=== PATIENT | female | born 1945 | race Caucasian/White ===

== ENCOUNTER → 2017-01-31 | Outpatient (CLI) | payer MEDICARE ==
[~2017-01-31] MED LIST: ATEN1TAB3 PO; OXYC-12 PO
--- NOTE | 2017-01-31 13:32 | Diagnostic Imaging Report ---
INDICATION: Cough and shortness of breath. PA and lateral chest. FINDINGS: Heart size and pulmonary vascularity are normal. Lungs are clear. There are no effusions or pneumothoraces. IMPRESSION: Negative chest. Dictated by: Dictated on workstation # [id number]
== END ==
LOC: RAD 13:00
PROVIDERS: ATTEND Nurse Practitioner Family
DX: R06.02 Shortness of breath (principal)
CPT/HCPCS: 71020

== ENCOUNTER → 2017-02-24 | Outpatient (CLI) | payer MEDICARE ==
--- NOTE | 2017-02-24 12:11 | Diagnostic Imaging Report ---
PROCEDURE: MRI left upper extremity without contrast. TECHNIQUE: Multiplanar, multisequence non contrast-enhanced MRI of the left upper extremity was accomplished. INDICATION: Left shoulder pain. FINDINGS: There is flattening of the posterolateral aspect of the humeral head, which could be related to an old injury or anterior dislocation. This is not associated with bone marrow contusion to suggest an acute abnormality. There is no os acromiale. The bone marrow around the acromioclavicular joint demonstrates subchondral edema compatible with degenerative changes with inferior osteophyte formation that has an impression upon the myotendinous junction of the supraspinatus posterior fibers is seen. There is also subchondral cyst formation measuring 7 mm at the upper aspect of the glenoid and cystic changes in the humeral head near the footplate insertion site of the rotator cuff also noted. The glenohumeral joint demonstrates cartilage thinning and fissuring with osteophyte formation, inferiorly compatible with osteoarthritis. There is rotator cuff tendinosis with undersurface partial tear involving the anterior fibers of the supraspinatus. No full-thickness or retracted tear. The subscapular tendon also demonstrates slight increased signal suggestive of tendinosis without a tear identified. The long head of biceps tendon appears to be within its groove. There is increased signal in the superior and in the inferior segments of the labrum which could relate to degeneration or nondisplaced tears. The muscle bulk around the shoulder is normal. There is minimal amount of fluid in the subacromial subdeltoid bursa. There is a small to moderate shoulder joint effusion. IMPRESSION: 1. Glenohumeral and acromioclavicular joint osteoarthritis changes with inferior osteophytes at both joints. 2. Rotator cuff tendinosis and partial undersurface tear seen in the anterior fibers of the supraspinatus tendon. 3. Signal abnormality in the superior and inferior segments of the labrum is suggestive of degeneration or nondisplaced tears. Dictated by: Dictated on workstation # [id number]
== END ==
LOC: RAD 09:22
PROVIDERS: ATTEND Orthopaedic Surgery
DX: M19.012 Primary osteoarthritis, left shoulder (principal); M75.82 Other shoulder lesions, left shoulder
CPT/HCPCS: 73221

== ENCOUNTER 2017-03-23 05:34 | Outpatient (CLI) | payer MEDICARE ==
[~2017-03-23] VITALS: Ht 162.6 cm; Wt 78.0 kg
== END 2017-03-23 11:01 ==
LOC: PREOP 05:34
PROVIDERS: ATTEND Orthopaedic Surgery
DX: Z01.818 Encounter for other preprocedural examination (principal); M75.102 Unspecified rotator cuff tear or rupture of left shoulder, not specified as traumatic

== ENCOUNTER 2017-03-28 07:27 | Day surgery (SDC) | payer MEDICARE ==
[~2017-03-28] VITALS: Ht 162.6 cm; Wt 78.0 kg
[2017-03-28] MEDS ORDERED: ceFAZolin 2 GM/50 ML NS 50 ML ONE (07:32)
[2017-03-28] MEDS ORDERED: LIDOCAINE PF 2% 5 ML (XYLOCAINE) VIAL ONE (07:34)
[2017-03-28] MEDS ORDERED: ROCURONIUM 50 MG/5 ML (ZEMURON) VIAL IV ONE (07:34)
[2017-03-28] MEDS ORDERED: proPOfol 200 MG/20 ML (DIPRIVAN) VIAL IV ONE (07:34)
[2017-03-28] MEDS ORDERED: ONDANSETRON 4 MG/2 ML (SDV) Z0FRAN ONE ×2 (07:34→07:57)
[2017-03-28] MEDS ORDERED: fentaNYL INJECTION 100 MCG/2 ML AMP ONE (07:34)
[2017-03-28] MEDS ORDERED: LIDOCAINE 1% INJ 20 ML (XYLOCAINE) VIAL ONE (07:35)
[2017-03-28] MEDS ORDERED: EPINEPHrine INJECTION 1 MG/ML AMP ONE (07:35)
[2017-03-28] MEDS ORDERED: SEVOFLURANE (ULTANE) 15 ML INHAL SOLN ONE ×3 (07:35→09:08)
[2017-03-28] MEDS ORDERED: LACTATED RINGERS 1,000 ML IV ONE (07:35)
[2017-03-28] MEDS ORDERED: ROPIVACAINE 5MG/ML 30ML VIAL ONE (07:40)
[2017-03-28] MEDS ORDERED: MIDAZOLAM 2 MG/2 ML (VERSED) VIAL ONE (07:40)
[2017-03-28] MEDS ORDERED: FAMOTIDINE 20MG/2ML IV (PEPCID) ONE (07:57)
--- NOTE | 2017-03-28 07:57 | Discharge Inst-Simple/Standard ---
Discharge Inst-Standard Discharge Medications New, Converted or Re-Newed RX: RX on Chart Patient Instructions/Follow Up Plan of Care/Instructions/FU: f/u in [address] High arthroscopy instructions for more detail Activity as Tolerated: No Discharge Diet: No Restrictions Return to The Hospital For: call Dr. Mendez office for any questions/concerns SANDRA BECK APRN Mar 28, 2017 7:57 am
[2017-03-28] MEDS ORDERED: HYDROcodone/APAP 5 MG/325 MG (LORTAB) TAB PO PRN (08:00)
--- NOTE | 2017-03-28 08:03 | Progress Note-Pre Operative ---
Pre-Operative Progress Note H&P Reviewed The H&P was reviewed, patient examined and no changes noted. Date Seen by Provider: Mar 28, 2017 Time Seen by Provider: 08: Date H&P Reviewed: Mar 28, 2017 Time H&P Reviewed: 08:19 Pre-Operative Diagnosis: Primary Osteoarthritis AC joint Left shoulder with secondary impingement SHANIQUA VILLEDA DO Mar 28, 2017 8:03 am
[2017-03-28] MEDS ORDERED: LABETALOL HCL 20 MG/4 ML VIAL ONE (08:08)
[2017-03-28] MEDS ORDERED: ceFAZolin 2 GM/NS 50 ML IV ONE (08:15)
[2017-03-28] MEDS ORDERED: LACTATED RINGERS 1,000 ML IV PRN (08:18)
--- NOTE | 2017-03-28 08:21 | Anesthesia-Peripheral Nerve Bl ---
Procedure Start/Stop Time Date of Procedure: Mar 28, 2017 Start Time: 07:50 Stop Time: 08:00 Peripheral Nerve Block Peripheral Nerve Blockade Risk/Benefits/Alternatives discussed, including IV injection leading to complications or seizures, nerve irritation or damage, pneumothorax, total spinal anesthesia, injection, and/or bleeding. Approach: Left ISB Side Confirmed: LEFT Indication: Req Pain Mgmt by Surgeon Specifically requested for management of pain by: Dr. High Patient Condition Patient Condition: Sedate/contact maintained Procedure Prepartation: Chlorhexidine Position: Supine Fountain: Short-bevel Needle (s) Size: 22g 2" Technique: Nerve Stimulation, Ultrasound Motor response or parethesia o: bicepts twitch mA: 0.5 Sedation Given: Midazolam (2mg) Injectate: ropivacaine Concentration %: 0.5 Volume (ml): 30 Narrative Injection was made incrementally with constant monitoring. Aspiration every (mls): 5 Blood Aspirated: No Pain on injection noted: No Normal Resistance on injection: Yes Events Events: None:easy well tolerated Sucess: Full evaluation-pending Patient Conditon Post Peripheral Nerve Block Post Peripheral Nerve Block Vital Signs: Blood Pressure: Systolic Diastolic Heart Rate BLANCHE OSMAN CRNA Mar 28, 2017 08:21
[2017-03-28] MEDS ORDERED: ONDANSETRON 4 MG/2 ML (SDV) Z0FRAN IV ONE (08:30)
[2017-03-28] MEDS ORDERED: FAMOTIDINE 20MG/2ML IV (PEPCID) IV ONE (08:30)
[2017-03-28 08:50] VITALS: BP 175/90
[2017-03-28] MEDS ORDERED: HYDR-757 PO (08:56)
[2017-03-28] MEDS ORDERED: TRAM-42 PO (08:56)
[2017-03-28] MEDS ORDERED: GLYCOPYRROLATE 0.2 MG/ML (ROBINUL) 2 ML VIAL ONE (09:08)
[2017-03-28] MEDS ORDERED: NEOSTIGMINE (BLOXIVERZ ) 1 MG/1ML 10 ML VIAL ONE (09:08)
[2017-03-28] MEDS ORDERED: ONDANSETRON 4 MG/2 ML (SDV) Z0FRAN IVP PRN (09:45)
[2017-03-28] MEDS ORDERED: morphine INJ 10 MG/ML 1ML (SYR OR VIAL) IVP PRN (09:45)
--- NOTE | 2017-03-28 09:50 | Progress Note-Post Operative ---
Post-Operative Progess Note Surgeon (s)/Wood Caulker (s) Surgeon SHANIQUA VILLEDA DO Wood Caulker: Gary Oneil GRAPHIC COORDINATORMemo Pre-Operative Diagnosis Primary Osteoarthritis AC joint Left shoulder with secondary impingement Post-Operative Diagnosis primary OA glenohumeral joint and AC joint Left shoulder, Partial rotator cuff tear, labral tear with bicipital tendonitis Impingement syndrome left shoulder Procedure & Operative Findings Date of Procedure 03/28/17 Procedure Performed/Findings Impingement left shoulder, labral tear, biceps tendon tear, partial rotator cuff tendon tear primary OA glenohumeral joint left shoulder Arthroscopy Left shoulder with RANDAL, DCE biceps tenotomy debridement partial rotator cuff tear Anesthesia Type general with interscalene block Estimated Blood Loss Estimated blood loss (mL): min Specimens/Packing Specimens Removed none SHANIQUA VILLEDA DO Mar 28, 2017 9:50 am
[2017-03-28 10:20] VITALS: BP 146/64
[2017-03-28 10:50] VITALS: BP 142/63
[2017-03-28 11:20] VITALS: BP 134/66
[2017-03-28 11:40] VITALS: BP 134/66
--- NOTE | 2017-03-29 07:42 | OPERATIVE REPORT ---
DATE OF SERVICE: 03/28/2017 PREOPERATIVE DIAGNOSES: 1. Primary osteoarthritis, glenohumeral joint, left shoulder. 2. Primary osteoarthritis, acromioclavicular joint, left shoulder with secondary impingement. 3. Partial rotator cuff tear, anterior left shoulder. 4. Bicipital tendonitis, left shoulder. POSTOPERATIVE DIAGNOSES: 1. Primary osteoarthritis, glenohumeral joint, left shoulder. 2. Primary osteoarthritis, acromioclavicular joint, left shoulder with secondary impingement. 3. Partial rotator cuff tear, anterior left shoulder. 4. Bicipital tendonitis, left shoulder. PROCEDURE: 1. Arthroscopy, left shoulder, with debridement, partial rotator cuff tendon tear (subscapular and supraspinatus tendon). 2. Arthroscopy, left shoulder, with arthroscopic subacromial decompression and distal clavicle excision. 3. Arthroscopy, left shoulder, with biceps tenotomy. 4. Arthroscopic labral debridement with chondroplasty, glenohumeral joint, left shoulder. SURGEON: Shaniqua Villeda DO MUSIC THERAPIST: JCRALOS Clemente ANESTHESIA: General with interscalene block. INDICATIONS AND FINDINGS: The patient is a 71-year-old female seen with chief complaint and pain, weakness and loss of active range of motion in the left shoulder. An MRI evaluation of the left shoulder revealed partial tearing of the supraspinatus tendon, increased signal with subscapularis tendon as well as bicipital tendonitis. Significant degenerative changes of the glenohumeral joint were noted with the degenerative changes of the acromioclavicular joint secondary impingement. The patient was taken to surgery where an arthroscopy of the left shoulder was performed. We discussed the treatment options between a total shoulder arthroplasty in the arthroscopic procedure. The patient had undergone recent of her who is hoping to proceed forward with less aggressive surgery. At the time of arthroscopy, the patient demonstrated full thickness articular cartilage loss from the humeral head. The anteroinferior aspect of the glenoid demonstrated exposed subchondral bone. There was significant thinning in the articular cartilage over the superior aspect of the glenoid. There was labral tearing of the anterior quadrant of the glenoid, which extended into the superior and posterior aspect of the glenoid consistent with the type 2 slap tear. There was tendonitis of the biceps tendon, which was more prominent when the tendon was pulled into the shoulder and the tenotomy was completed. There was partial tearing of the subscapularis tendon with synovitis in the rotator cuff interval. There was partial traumatic tearing of the supraspinatus tendon as well and this was debrided. A chondroplasty of the glenohumeral joint was completed. The subacromial region demonstrated significant erosion of the periosteum on the undersurface of the acromion with thickening of the coracoid acromion ligament and erythema. There was partial tearing in the superior aspect of the rotator cuff tendon. The tendon did not require repair. A subacromial decompression and distal clavicular excision was performed. PROCEDURE IN DETAIL: The patient was seen by anesthesia preoperatively and under ultrasound guidance of interscalene block was performed with the left shoulder decreased postop pain and decreased amount of medication required during the surgical procedure. The patient was transferred to the operating room where general inhalation anesthetic was administered. The patient was placed in a right lateral decubitus position and secured to the operating table with [facility] [place] and the left arm was in placed in slight abduction, forward flexion and maintaining this position by 10 pounds of traction weigh. A chloraprep and sterile drape of the left shoulder and left upper extremity was performed. The surface landmarks of the left shoulder was then traced on the skin. The posterior arthroscopic portal site was chosen. An 18-gauge spinal needle was inserted into the glenohumeral joint, the total of 50 mL of normal saline was insufflated into the shoulder. A stab incision was made to this location. A blunt obturator and cannula were inserted through the posterior aspect of the shoulder in the glenohumeral joint and the arthroscope was inserted. A Wissinger gonzalo was used to develop an anteroinferior arthroscopic portal site through which an operating cannula was inserted. Biceps tendon was probed, the detached labrum was identified. An arthroscopic scissors were inserted and biceps tenotomy was completed. The biceps tendon stump was then debrided with vapor coagulation wand. The labrum was debrided with full radius synovial shaver. The loose chondral fragments of articular cartilage at the glenoid and the humeral head were debrided with the full radius synovial shaver. The area was further debrided with bipolar cautery, the undersurface rotator cuff tendon. The supraspinatus tendon was debrided with full radius synovial shaver superficially with bipolar cautery. was performed, there was some partial tearing of the subscapularis tendon, this was debrided. Scarring in the rotator cuff tendon was debrided as well as synovitis with bipolar cautery. The arthroscope was then repositioned through the posterior portal in the subacromial region and extensor lateral portal was established through which an operative cannula was inserted. Hypertrophic bursal tissue was excised. There was fraying of the periosteum on the undersurface of the acromion. The bipolar cautery as well as a full radius synovial shaver was used to debride the undersurface of the acromion to the level of the acromioclavicular joint. A motorized lexx was then used to complete an anteroinferior acromioplasty removing bone from the anterior and lateral aspect of the acromion to the deltoid tendon insertion. The undersurface of the distal clavicle was debrided with the full radius motorized lexx removing 15 mm bone from the undersurface of the distal clavicle. The rotator cuff tendon again was probed. No full thickness tearing was noted. There was superficial fraying of the superior aspect of the bursal surface of the supraspinatus tendon was debrided with full radius synovial shaver. At the completion of the procedure, ____ irrigated with normal saline solution and drained. The arthroscopic portal sites were closed with 3-0 nylon suture. An Adaptic bulky dressing was placed about the left shoulder, the arm was placed in a sling. The patient was awakened and was transported to a postop recovery room with anesthesia personnel present in stable condition. An intraoperative video recording as well as intraoperative photographs of the procedure were obtained for the record and provided to the patient. Job ID: [id number] DocumentID: [id number] Dictated Date: 03/28/2017 10:02:41 Pipe Line Walker Date: 03/28/2017 13:42:24 Dictated By: SHANIQUA VILLEDA DO
--- OUTSIDE RECORDS SUMMARY | 2017-03-30 14:19 | XMS REPORT | Continuity of Care Document ---
Author Author [facility] Organization [facility] Address Unknown Phone Unavailable Allergies Active Description Code Type Severity Reaction Onset Reported/Identified Relationship to Patient Clinical Status Yes alcohol [id number] Drug Allergy Unknown N/A 03/23/2017 Yes bacitracin [id number] Drug Allergy Unknown N/A 03/23/2017 Yes Bacitracin Zinc [id number] Drug Allergy Unknown N/A 03/23/2017 Yes gramicidin D [id number] Drug Allergy Unknown N/A 03/23/2017 Yes iodine [id number] Drug Allergy Unknown N/A 03/23/2017 Yes neomycin sulfate [id number] Drug Allergy Unknown N/A 03/23/2017 Yes polymyxin B [id number] Drug Allergy Unknown N/A 03/23/2017 Yes polymyxin B sulfate [id number] Drug Allergy Unknown N/A 03/23/2017 Medications Problems Date Dx Coded Attending Type Code Diagnosis Diagnosed By 11/16/2011 Ot 599.0 URIN TRACT INFECTION NOS 11/16/2011 Ot 820.09 FX FEMUR INTRCAPS NEC-CL 11/16/2011 Ot E849.6 ACCIDENT IN PUBLIC BLDG 11/16/2011 Ot E885.9 FALL FROM SLIPPING, TRIPPING, OR STUMBLI 03/26/2012 Ot V54.13 AFTERCARE HEALING TRAUMATIC FX HIP 03/26/2012 Ot V57.1 PHYSICAL THERAPY NEC 09/21/2012 Ot 455.0 INT HEMORRHOID W/O COMPL 09/21/2012 Ot 455.3 EXT HEMORRHOID W/O COMPL 09/21/2012 Ot 530.11 REFLUX ESOPHAGITIS 09/21/2012 Ot 535.50 UNSP GASTRITIS GASTRODUODENITIS W/O ME 09/21/2012 Ot 553.3 DIAPHRAGMATIC HERNIA 09/21/2012 Ot 562.10 DIVERTICULOSIS COLON (W/O MENT OF HEMORR 09/21/2012 Ot 569.3 RECTAL ANAL HEMORRHAGE 09/21/2012 Ot V12.72 PERSONAL HISTORY OF COLONIC POLYPS 09/21/2012 Ot V16.0 FAMILY HX-GI MALIGNANCY 07/08/2013 MARCELLE WANG SENIOR SYSTEMS ANALYST Ot 719.46 JOINT PAIN-L/LEG 07/08/2013 MARCELLE WANG SENIOR SYSTEMS ANALYST Ot 784.0 HEADACHE 07/08/2013 MARCELLE WANG SENIOR SYSTEMS ANALYST Ot 873.41 OPEN WOUND OF CHEEK 07/08/2013 MARCELLE WANG SENIOR SYSTEMS ANALYST Ot E000.8 OTHER EXTERNAL CAUSE STATUS 07/08/2013 MARCELLE WANG SENIOR SYSTEMS ANALYST Ot E849.0 ACCIDENT IN HOME 07/08/2013 MARCELLE WANG SENIOR SYSTEMS ANALYST Ot E888.9 FALL NOS 07/08/2013 MARCELLE WANG SENIOR SYSTEMS ANALYST Ot V06.5 TETANUS-DIPHTHERIA [TD][DT] 11/06/2014 Ot 611.72 11/06/2014 Ot V76.12 11/06/2014 Ot 610.0 11/06/2014 Ot 786.2 11/06/2014 Ot V76.12 11/06/2014 Ot 786.50 11/06/2014 Ot V76.12 11/06/2014 Ot V54.15 11/06/2014 Ot 719.41 11/06/2014 Ot 959.2 11/06/2014 Ot E000.8 11/06/2014 Ot E849.6 11/06/2014 Ot E888.9 11/06/2014 Ot V54.13 11/06/2014 Ot V72.84 11/06/2014 MARISOL ADAM, LUC Blanco Ot 789.01 11/06/2014 LUC DAMON MD Ot 715.35 11/06/2014 LUC DAMON MD Ot 719.45 11/06/2014 LUC DAMON MD Ot 722.52 11/06/2014 LUC DAMON MD Ot V70.0 11/06/2014 LUC DAMON MD Ot 719.45 11/06/2014 LUC DAMON MD Ot V76.12 11/06/2014 LUC DAMON MD Ot 807.01 11/06/2014 LUC DAMON MD Ot E000.8 11/06/2014 LUC DAMON MD Ot E888.9 11/06/2014 LUC DAMON MD Ot 789.01 11/14/2014 HARPREET ADAM, JOSE MANUEL Ot 575.11 CHRONIC CHOLECYSTITIS 11/14/2014 HARPREET ADAM, JOSE MANUEL Ot 575.8 11/18/2014 MARISOL ADAM, LUC Blanco Ot 789.01 11/27/2014 MARISOL ADAM, LUC Blanco Ot 789.01 12/03/2014 HARPREET ADAM, JOSE MANUEL Ot 575.8 12/03/2014 HARPREET ADAM, ASHWINKI Ot 791.9 12/03/2014 HARPREET ADAM, JOSE MANUEL Ot V72.63 12/03/2014 HARPREET ADAM, JOSE MANUEL Ot V72.81 12/03/2014 HARPREET ADAM, JOSE MANUEL Ot V72.83 12/03/2014 HARPREET ADAM, JOSE MANUEL Ot V74.8 02/27/2015 MARISOL ADAM, LUC Blanco Ot 789.01 02/27/2015 MARISOL ADAM, LUC Blanco Ot 789.01 01/31/2017 Ot 786.50 CHEST PAIN NOS 01/31/2017 Ot V76.12 OTH SCREEN MAMMO-MALIGN NEOPLASM OF AYANA 01/31/2017 Ot V54.15 AFTERCARE HEALING TRAUMATIC FX UPPER LEG 01/31/2017 Ot 719.41 JOINT PAIN-SHLDER 01/31/2017 Ot 959.2 SHLDR/UPPER ARM INJ NOS 01/31/2017 Ot E000.8 OTHER EXTERNAL CAUSE STATUS 01/31/2017 Ot E849.6 ACCIDENT IN PUBLIC BLDG 01/31/2017 Ot E888.9 FALL NOS 01/31/2017 Ot V54.13 AFTERCARE HEALING TRAUMATIC FX HIP 01/31/2017 Ot V72.84 EXAM PRE-OPERATIVE NOS 01/31/2017 MARISOL ADAM, LUC Blanco Ot 789.01 ABDOMINAL PAIN, RIGHT UPPER QUADRANT 01/31/2017 LUC DAMON MD Ot 715.35 LOC OSTEOARTH NOS-PELVIS 01/31/2017 LUC DAMON MD Ot 719.45 JOINT PAIN-PELVIS 01/31/2017 LUC DAMON MD Ot 722.52 LUMB/LUMBOSAC DISC DEGEN 01/31/2017 LUC DAMON MD Ot V70.0 ROUTINE MEDICAL EXAM 01/31/2017 LUC DAMON MD, Ot 719.45 JOINT PAIN-PELVIS 01/31/2017 LUC DAMON MD Ot V76.12 OTH SCREEN MAMMO-MALIGN NEOPLASM OF AYANA 01/31/2017 LUC DAMON MD Ot 807.01 FRACTURE ONE RIB-CLOSED 01/31/2017 LUC DAMON MD Ot E000.8 OTHER EXTERNAL CAUSE STATUS 01/31/2017 LUC DAMON MD Ot E888.9 FALL NOS 01/31/2017 LUC DAMON MD Ot 789.01 ABDOMINAL PAIN, RIGHT UPPER QUADRANT 01/31/2017 LUC DAMON MD Ot 789.01 ABDOMINAL PAIN, RIGHT UPPER QUADRANT 01/31/2017 JOSE MANUEL MULLINS MD Ot 575.8 DIS OF GALLBLADDER NEC 01/31/2017 JOSE MANUEL MULLINS MD Ot 791.9 ABN URINE FINDINGS NEC 01/31/2017 JOSE MANUEL MULLINS MD Ot V72.63 PRE-PROCEDURAL LABORATORY EXAMINATION 01/31/2017 JOSE MANUEL MULLINS MD Ot V72.81 IIKG-UAR-AKEXTRQVG CARDIOVASCULAR 01/31/2017 JOSE MANUEL MULLINS MD Ot V72.83 EXAM PRE-OPERATIVE NEC 01/31/2017 JOSE MANUEL MULLINS MD Ot V74.8 SCREEN-BACTERIAL DIS NEC 02/01/2017 LIBBY SAAVEDRA APRN Ot R06.02 SHORTNESS OF BREATH 02/22/2017 LIBBY SAAVEDRA APRN Ot R06.02 SHORTNESS OF BREATH 03/07/2017 LIBBY SAAVEDRA APRN Ot R06.02 SHORTNESS OF BREATH 03/10/2017 SHANIQUA VILLEDA DO Ot M19.012 PRIMARY OSTEOARTHRITIS, LEFT SHOULDER 03/10/2017 SHANIQUA VILLEDA DO, Ot M75.82 OTHER SHOULDER LESIONS, LEFT SHOULDER 03/23/2017 SHANIQUA VILLEDA DO Ot M75.102 UNSP ROTATR-CUFF TEAR/RUPTR OF LEFT SHOU 03/23/2017 SHANIQUA VILLEDA DO Ot Z01.818 ENCOUNTER FOR OTHER PREPROCEDURAL EXAMIN 03/28/2017 SHANIQUA VILLEDA DO, Ot M19.012 PRIMARY OSTEOARTHRITIS, LEFT SHOULDER 03/28/2017 SHANIQUA VILLEDA DO, Ot M75.82 OTHER SHOULDER LESIONS, LEFT SHOULDER Procedures Code Description Performed By Performed On 78.55 INTERNAL FIXATION-FEMUR 11/15/2011 Results Test Result Range Methicillin resistant Staphylococcus aureus (MRSA) screening culture - 07:40 Methicillin resistant Staphylococcus aureus (MRSA) screening culture NEG NRG Encounters ACCT No. Visit Date/Time Discharge Status Pt. Type Provider Facility Loc./Unit Complaint [id number] 03/28/2017 07:27:00 2016 11:40:00 DIS Outpatient SHANIQUA VILLEDA DO [facility] LEFT SHOULDER ROTATOR CUFF TENDONITIS W/TEAR [id number] 03/23/2017 05:34:00 2016 11:01:00 DIS Outpatient SHANIQUA VILLEDA DO [facility] PREOP LEFT SHOULDER ROTATOR CUFF TENDONITIS W/TEAR [id number] 11/13/2014 11:00:00 2014 23:25:00 DIS Outpatient JOSE MANUEL MULLINS MD [facility] BILIARY DYSKNESIA [id number] 11/12/2014 12:53:00 2014 23:59:59 CLS Outpatient JOSE MANUEL MULLINS MD [facility] PREOP BILIARY DYSKNESIA [id number] 11/06/2014 09:33:00 2014 23:59:59 CLS Outpatient LUC DAMON MD [facility] CARD RUQ PAIN, NEG SONO [id number] 10/29/2014 08:53:00 2014 23:59:59 CLS Outpatient LUC DAMON MD [facility] RAD RUQ PAIN [id number] 07/15/2014 13:40:00 2013 23:59:59 CLS Outpatient LUC DAMON MD [facility] RAD FALL C/O SEVERE RIB PAIN [id number] 04/21/2014 10:01:00 2013 23:59:59 CLS Outpatient LUC DAMON MD [facility] RAD SCREENING [id number] 03/25/2014 11:18:00 2013 23:59:59 CLS Outpatient LUC DAMON MD [facility] RAD HX OF HIP FX [id number] 07/08/2013 15:44:00 2012 18:53:00 DIS Emergency WANGMARCELLE SENIOR SYSTEMS ANALYST [facility] ER FACE LAC POST FALL [id number] 05/24/2013 08:26:00 2012 23:59:59 CLS Outpatient MARISOL ADAM, LUC Blanco [facility] RAD RUQ PAIN [id number] 02/24/2017 09:22:00 ACT Outpatient SHANIQUA VILLEDA DO F [facility] RAD LEFT SHOULDER PAIN [id number] 01/31/2017 13:00:00 ACT Outpatient LIBBY SAAVEDRA SENIOR SYSTEMS ANALYST [facility] RAD SOB [id number] 11/06/2014 09:33:00 Document Registration [id number] 11/06/2014 09:33:00 Document Registration [id number] 09/21/2012 08:07:00 Document Registration [id number] 09/19/2012 07:18:00 Document Registration [id number] 03/23/2012 10:42:00 Document Registration [id number] 02/22/2012 13:43:00 Document Registration [id number] 01/16/2012 11:03:00 Document Registration [id number] 12/26/2011 10:41:00 Document Registration [id number] 11/14/2011 18:19:00 Document Registration [id number] 11/07/2011 06:20:00 Document Registration [id number] 10/08/2010 08:52:00 Document Registration [id number] 09/18/2009 14:21:00 Document Registration [id number] 07/07/2009 15:02:00 Document Registration [id number] 06/19/2009 14:52:00 Document Registration
== END 2017-03-28 11:40 | disposition home or self-care (01) ==
LOC: SDC 07:27
PROVIDERS: ATTEND Orthopaedic Surgery
DX: M19.012 Primary osteoarthritis, left shoulder (principal); M75.112 Incomplete rotator cuff tear or rupture of left shoulder, not specified as traumatic; M75.22 Bicipital tendinitis, left shoulder; I10 Essential (primary) hypertension; E78.00 Pure hypercholesterolemia, unspecified; K21.9 Gastro-esophageal reflux disease without esophagitis; Z79.899 Other long term (current) drug therapy
CPT/HCPCS: 87081

== ENCOUNTER → 2017-06-05 | Outpatient (CLI) | payer MEDICARE ==
[~2017-06-05] MED LIST changes: +HYDR-757 PO; +TRAM-42 PO
== END ==
LOC: ONC 14:25
PROVIDERS: ATTEND Nurse Practitioner Adult Health
DX: Z80.3 Family history of malignant neoplasm of breast (principal); Z80.0 Family history of malignant neoplasm of digestive organs
CPT/HCPCS: 99213

== ENCOUNTER → 2019-07-22 | Outpatient (CLI) | payer MEDICARE ==
[~2019-07-22] MED LIST changes: +HYDR-4226 PO; -HYDR-757 PO
--- NOTE | 2019-07-22 17:48 | Diagnostic Imaging Report ---
INDICATION: Neck pain. Three views were obtained. FINDINGS: Straightening of the normal cervical lordosis. Vertebral body heights are well-maintained. There is no fracture or traumatic subluxation. There is multilevel degenerative disc disease with posterior facet arthropathy. The odontoid is intact and the lateral masses are well aligned. Lung apices are clear. IMPRESSION: Diffuse cervical spondylosis and multilevel degenerative disc disease without acute fracture or traumatic subluxation. Dictated by: Dictated on workstation # [id number]
== END ==
LOC: RAD 17:05
PROVIDERS: ATTEND Nurse Practitioner Family
DX: M47.812 Spondylosis without myelopathy or radiculopathy, cervical region (principal); M50.30 Other cervical disc degeneration, unspecified cervical region
CPT/HCPCS: 72040

== ENCOUNTER → 2019-08-27 | Outpatient (CLI) | payer MEDICARE ==
--- NOTE | 2019-08-27 12:51 | Diagnostic Imaging Report ---
PROCEDURE: MR imaging cervical spine without contrast. TECHNIQUE: Multiplanar, multisequence MR imaging of the cervical spine was performed without contrast. INDICATION: Neck pain x6 weeks. COMPARISON: Cervical spine radiographs 07/22/2019. FINDINGS: Normal alignment. Vertebral body heights are preserved. Mild degenerative endplate changes. Bone marrow signal is otherwise unremarkable. No abnormal signal in the cervical spinal cord. The visualized paravertebral soft tissues are unremarkable. C2-C3: No spinal canal or neural foraminal narrowing. C3-C4: Uncovertebral and facet arthropathy result in moderate right and mild left neural foraminal narrowing. No spinal canal narrowing. C4-C5: Posterior disc osteophyte complex results in mild spinal canal narrowing. No neural foraminal narrowing. C5-C6: Annular disc bulge results in mild spinal canal narrowing. There is mild bilateral neural foraminal narrowing. C6-C7: Annular disc bulge results in moderate spinal canal narrowing. Mild bilateral neural foraminal narrowing. C7-T1: No spinal canal or neural foraminal narrowing. IMPRESSION: 1. Spondylotic changes result in moderate spinal canal narrowing at C6-C7. No other high-grade spinal canal narrowing. 2. No abnormal signal in the cervical spinal cord. 3. Multilevel mild and moderate neural foraminal narrowing detailed above level by level. Dictated by: Dictated on workstation # [id number]
== END ==
LOC: RAD 11:58
PROVIDERS: ATTEND Orthopaedic Surgery Orthopaedic Surgery of the Spine
DX: M48.02 Spinal stenosis, cervical region (principal); M50.222 Other cervical disc displacement at C5-C6 level; M47.812 Spondylosis without myelopathy or radiculopathy, cervical region; M25.78 Osteophyte, vertebrae; M54.5 Low back pain
CPT/HCPCS: 72141

== ENCOUNTER 2019-10-12 08:47 | Emergency (ER) | payer MEDICARE ==
[~2019-10-12] VITALS: Ht 162.5 cm; Wt 79.5 kg
--- NOTE | 2019-10-12 09:11 | ED Cough/URI ---
General Chief Complaint: Cough/Cold/Flu Symptoms Stated Complaint: SORE THROAT - COUGH - CONGESTION Nursing Triage Note: PT AMB TO RM 6 WITH COMPLAINT OF COUGH, CONGESTION, AND SORE THROAT. PT STATES SYMPTOMS STARTED MONDAY, WAS SEEN AT DR SHIN OFFICE ON MONDAY, GIVEN STEROID SHOT AND PRESCRIBED AMOXICILLIN. STATES SORE THROAT HAS BEEN WORSENING. Sepsis Screen: No Definite Risk Source: patient Exam Limitations: no limitations History of Present Illness Date Seen by Provider: Oct 12, 2019 Time Seen by Provider: 09:07 Initial Comments This 74-year-old female presents with complaint of persistent cough congestion sore throat for the last 3 days. The patient has been seen twice in Dr. Ruiz's office on and again on Monday. She was treated with amoxicillin on . I believe she received a steroid shot on Monday. Despite these interventions the patient continues to have a severe sore throat which has not allowed her to take her daily medications including her antihypertensive meds for the last 3 days. The patient denies any airway impingement. The patient has had no associated nausea vomiting or diarrhea. She denies headache stiff neck or photophobia. Allergies and Home Medications Allergies Coded Allergies: Bacitracin Zinc (Verified Allergy, Unknown, 03/23/17) alcohol (Verified Allergy, Unknown, 03/23/17) bacitracin (Verified Allergy, Unknown, 03/23/17) gramicidin D (Verified Allergy, Unknown, 03/23/17) iodine (Verified Allergy, Unknown, 03/23/17) neomycin sulfate (Verified Allergy, Unknown, 03/23/17) polymyxin B (Verified Allergy, Unknown, 03/23/17) polymyxin B sulfate (Verified Allergy, Unknown, 03/23/17) Home Medications Chlorthalidone/Atenolol 1 Each Tablet, 1 EACH PO DAILY, (Reported) Hydrocodone/Acetaminophen 1 Each Tablet, 1 EACH PO UD Prescribed by: MALCOM SANCHEZ on 03/28/17855 Tramadol HCl 50 Mg Tablet, 50 MG PO UD Prescribed by: MALCOM SANCHEZ on 03/28/17 08 Patient Home Medication List Home Medication List Reviewed: Yes Review of Systems Review of Systems Constitutional: No chills, No fever; malaise EENTM: throat pain; No throat swelling Respiratory: see HPI, cough; No short of breath Cardiovascular: No chest pain, No palpitations Gastrointestinal: No abdominal pain, No nausea, No vomiting Genitourinary: No dysuria, No frequency Musculoskeletal: no symptoms reported; No back pain Skin: no symptoms reported; No rash Psychiatric/Neurological: No Symptoms Reported Hematologic/Lymphatic: No Symptoms Reported Immunological/Allergic: no symptoms reported Past Ibycaaq-Zouqrp-Gwfgcw Hx Past Med/Social Hx: Reviewed Nursing Past Med/Soc Hx Patient Social History Alcohol Use: Denies Use Recreational Drug Use: No Smoking Status: Never a Smoker Recent Foreign Travel: No Contact w/Someone Who Travel: No Recent Infectious Disease Expo: No Recent Hopitalizations: No Immunizations Up To Date Tetanus Booster (TDap): More than 5yrs Date of Pneumonia Vaccine: Oct 09, 2008 Date of Influenza Vaccine: Jul 18, 2016 Seasonal Allergies Seasonal Allergies: Yes Past Medical History Surgeries: Yes (ORIF LEFT HIP, KNEE, ANKLE, CATARACTS, THUMB, R LUMPECTOMY) Gallbladder, Hysterectomy Respiratory: No Cardiac: Yes Hypertension Neurological: No 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 0.0oz. [id number]; 30.00 BMI Method:Stated General Appearance: WD/WN, mild distress Eyes: Bilateral Eye Normal Inspection HEENT: normal ENT inspection, pharynx normal Neck: full range of motion, supple Respiratory: chest non-tender, lungs clear Cardiovascular: regular rate, rhythm, no murmur Gastrointestinal: normal bowel sounds, non tender Extremities: normal range of motion, non-tender, normal inspection Neurologic/Psychiatric: no motor/sensory deficits, alert, normal mood/affect Skin: normal color, warm/dry Progress/Results/Core Measures Suspected Sepsis Recent Fever Within 48 Hours: No Infection Criteria Present: None New/Unexplained Altered Menta: No Sepsis Screen: No Definite Risk SIRS Temperature: Pulse: 95 Respiratory Rate: 20 Laboratory Tests 10/12/19 06:28: White Blood Count 5.2 Blood Pressure 182 /121 Mean: 141 Laboratory Tests 10/12/19 06:28: Platelet Count 165 Results/Orders Lab Results Laboratory Tests Test 10/12/19 06:28 Range/Units White Blood Count 5.2 4.3-11.0 10^3/uL Red Blood Count 5.00 4.35-5.85 10^6/uL Hemoglobin 14.5 11.5-16.0 G/DL Hematocrit 42 35-52 % Mean Corpuscular Volume 85 80-99 FL Mean Corpuscular Hemoglobin 29 25-34 PG Mean Corpuscular Hemoglobin Concent 34 32-36 G/DL Red Cell Distribution Width 13.7 10.0-14.5 % Platelet Count 165 130-400 10^3/uL Mean Platelet Volume 8.9 7.4-10.4 FL Neutrophils (%) (Auto) 63 42-75 % Lymphocytes (%) (Auto) 20 12-44 % Monocytes (%) (Auto) 16 H 0-12 % Eosinophils (%) (Auto) 1 0-10 % Basophils (%) (Auto) 0 0-10 % Neutrophils # (Auto) 3.3 1.8-7.8 X 10^3 Lymphocytes # (Auto) 1.1 1.0-4.0 X 10^3 Monocytes # (Auto) 0.8 0.0-1.0 X 10^3 Eosinophils # (Auto) 0.0 0.0-0.3 10^3/uL Basophils # (Auto) 0.0 0.0-0.1 10^3/uL Group A Streptococcus Screen NEGATIVE NEGATIVE My Orders Orders - YOUSUF SHERIDAN MD Chest 1 View, Ap/Pa Only (10/12/19 09:04) Cbc With Automated Diff (10/12/19 09:04) Rapid Strep A Screen (10/12/19 09:04) Ns Iv 1000 Ml (Sodium Chloride 0.9%) (10/12/19 09:15) Fentanyl Injection (Sublimaze Injection (10/12/19 09:15) Medications Given in ED Current Medications Medications Dose Ordered Sig/Dasha Route Start Time Stop Time Status Last Admin Dose Admin Fentanyl Citrate 50 mcg ONCE ONCE IVP 10/12/19 09:15 10/12/19 09:16 DC 10/12/19 09:43 50 MCG Vital Signs/I&O 10/12/19 08:56 Temp 37.6 Pulse 95 Resp 20 B/P (MAP) 182/121 (141) Pulse Ox 97 O2 Delivery Room Air Capillary Refill : Less Than 3 Seconds Blood Pressure Mean: 141 Progress Note : Time: 10:16 Progress Note The patient's strep screen was negative. Patient's white count was normal. Patient's chest x-ray was clear. Patient was improved in terms of her pain with 50 g of fentanyl IV. I discussed the findings with the patient and family. I prescribed Tussionex and Vicodin for cough and pain. I asked that the patient rested home this and follow-up with Dr. Ruiz's office on Monday. I invited her to return to the emergency department in the interim if she had a further problems or questions. Departure Impression Primary Impression: Upper respiratory infection Qualified Codes: J06.9 - Acute upper respiratory infection, unspecified Disposition: HOME, SELF-CARE Condition: Improved Departure-Patient Inst. Decision time for Depature: 10:18 Referrals: MANISHA RUIZ MD (PCP/Family) Primary Care Physician Patient Instructions: Viral Upper Respiratory Infection, Adult (DC) Add. Discharge Instructions: John next and Vicodin as prescribed. Follow-up with Dr. Ruiz's office on Monday. Return if any problems or questions. All discharge instructions reviewed with patient and/or family. Voiced understanding. Scripts Hydrocodone/Acetaminophen (Vicodin 5-300 mg Tablet) 1 Each Tablet 1-2 EACH PO Q6H PRN for PAIN-MODERATE MDD 10 for 7 Days, #20 TAB Prov: YOUSUF SHERIDAN MD 10/12/19 YOUSUF SHERIDAN MD Oct 12, 2019 09:11
[2019-10-12] MEDS ORDERED: NS IV 1000 ML 1,000 ML IV SCH (09:15)
[2019-10-12] MEDS ORDERED: fentaNYL INJECTION 100 MCG/2 ML AMP IVP ONE (09:15)
[2019-10-12 09:36] LABS: BASOPHILS % (AUTO) 0 % (0-10); EOSINOPHILS % (AUTO) 1 % (0-10); HEMATOCRIT 42 % (35-52); HEMOGLOBIN 14.5 G/DL (11.5-16.0); LYMPHOCYTES # (AUTO) 1.1 X 10^3 (1.0-4.0); LYMPHOCYTES % (AUTO) 20 % (12-44); MEAN CORPUSCULAR HEMOGLOBIN 29 PG (25-34); MEAN CORPUSCULAR HGB CONC 34 G/DL (32-36); MEAN CORPUSCULAR VOLUME 85 FL (80-99); MEAN PLATELET VOLUME 8.9 FL (7.4-10.4); MONOCYTES # (AUTO) 0.8 X 10^3 (0.0-1.0); MONOCYTES % (AUTO) 16 % (0-12); NEUTROPHILS # (AUTO) 3.3 X 10^3 (1.8-7.8); NEUTROPHILS % (AUTO) 63 % (42-75); PLATELET COUNT 165 10^3/uL (130-400); RED CELL DISTRIBUTION WIDTH 13.7 % (10.0-14.5); WHITE BLOOD COUNT 5.2 10^3/uL (4.3-11.0)
--- NOTE | 2019-10-12 09:54 | Diagnostic Imaging Report ---
EXAM: CHEST 1 VIEW, AP/PA ONLY INDICATION: Cough. Weakness. COMPARISON: 01/31/2017. FINDINGS: Normal heart size and pulmonary vascularity. No dense consolidation, pleural effusion or pneumothorax. No acute osseous findings. No significant change. IMPRESSION: No acute cardiopulmonary findings. Dictated by: Dictated on workstation # [id number]
[2019-10-12] MEDS ORDERED: HYDR-3455 PO (10:22)
[2019-10-12 10:41] VITALS: BP 182/72
== END 2019-10-12 10:41 | disposition home or self-care (01) ==
LOC: EDUNIT# 08:47 → ER 08:48
DX: J06.9 Acute upper respiratory infection, unspecified (principal); I10 Essential (primary) hypertension; K21.9 Gastro-esophageal reflux disease without esophagitis; F32.9 Major depressive disorder, single episode, unspecified; Z86.010 Personal history of colon polyps; Z88.8 Allergy status to other drugs, medicaments and biological substances; Z88.1 Allergy status to other antibiotic agents; Z88.2 Allergy status to sulfonamides; Z90.710 Acquired absence of both cervix and uterus
CPT/HCPCS: 36415; 71045; 85025; 87430; 96361; 96374

== ENCOUNTER → 2019-11-09 | Outpatient (CLI) | payer MEDICARE ==
[~2019-11-09] MED LIST changes: +HYDR-3455 PO
== END ==
LOC: LAB 08:38
PROVIDERS: ATTEND Nurse Practitioner Family
DX: R05 Cough (principal)
CPT/HCPCS: 87070; 87205

== ENCOUNTER 2021-12-20 14:00 | Emergency (ER) | payer MEDICARE ==
[~2021-12-20] VITALS: Ht 160 cm; Wt 82.0 kg
[2021-12-20 14:15] LABS: BASOPHILS % (AUTO) 0 % (0-10); EOSINOPHILS # (AUTO) 0.1 10^3/uL (0.0-0.3); EOSINOPHILS % (AUTO) 1 % (0-10); HEMATOCRIT 46 % (35-52); HEMOGLOBIN 15.1 g/dL (11.5-16.0); LYMPHOCYTES # (AUTO) 2.7 10^3/uL (1.0-4.0); LYMPHOCYTES % (AUTO) 32 % (12-44); MEAN CORPUSCULAR HEMOGLOBIN 28 pg (25-34); MEAN CORPUSCULAR HGB CONC 33 g/dL (32-36); MEAN CORPUSCULAR VOLUME 86 fL (80-99); MONOCYTES # (AUTO) 0.9 10^3/uL (0.0-1.0); MONOCYTES % (AUTO) 11 % (0-12); NEUTROPHILS # (AUTO) 4.7 10^3/uL (1.8-7.8); NEUTROPHILS % (AUTO) 56 % (42-75); PLATELET COUNT 259 10^3/uL (130-400); WHITE BLOOD COUNT 8.4 10^3/uL (4.3-11.0)
[2021-12-20] MEDS ORDERED: ASPIRIN 81 MG CHEW (CHILDREN'S ASA) PO ONE (14:15)
[2021-12-20 14:28] LABS: ALBUMIN 4.3 GM/DL (3.2-4.5); CHLORIDE 105 MMOL/L (98-107); POTASSIUM 3.9 MMOL/L (3.6-5.0)
--- NOTE | 2021-12-20 14:28 | Diagnostic Imaging Report ---
INDICATION: Chest pain. TECHNIQUE: Single AP view of chest is obtained with comparison made to study of 10/12/2019. FINDINGS: Heart size and pulmonary vascularity are within normal limits, and the lungs are clear, bilaterally. IMPRESSION: Unremarkable chest. Dictated by: Dictated on workstation # [id number]
[2021-12-20 14:29] LABS: SODIUM 139 MMOL/L (135-145)
[2021-12-20 14:30] LABS: CALCIUM 9.4 MG/DL (8.5-10.1)
--- NOTE | 2021-12-20 14:30 | ED Chest Pain ---
General Chief Complaint: Chest Pain Stated Complaint: CHEST PAIN Nursing Triage Note: PT CO OF CHEST PAIN AMB TO RM 4 STATES APPROX 15-20 MINUTES AGO PT HAD CHEST PAIN W R ARM PAIN, SINCE STARTED DOWN TO 10/18. PT STATES ALSO HAD BLOOD NOSE AT SAME TIME Source: patient Exam Limitations: no limitations History of Present Illness Date Seen by Provider: Dec 20, 2021 Time Seen by Provider: 14:27 Initial Comments To ER with reports of chest pain. This started about 140 today after lifting some boxes at work. Started in the epigastric region and radiated up the mid chest to her neck and jaw. It was very intense and lasted about 15 minutes before resolving spontaneously. She does get acid reflux but this felt differently. She had no associated nausea dyspnea or diaphoresis. She gets these pains occasionally but they are usually of shorter duration and not nearly as intense. Her last episode similar to this was about 1 month ago. She has had stress tests done in the past and states that they were normal but they have been many years ago. She does have a history of hyperlipidemia (states she is not taking anything for it) and hypertension. The pain is completely gone now and she is asymptomatic. 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 NTG SL AUDIOVISUAL EQUIPMENT OPERATOR: No Associated Symptoms: denies symptoms Allergies and Home Medications Allergies Coded Allergies: Bacitracin Zinc (Verified Allergy, Unknown, 03/23/17) alcohol (Verified Allergy, Unknown, 03/23/17) bacitracin (Verified Allergy, Unknown, 03/23/17) gramicidin D (Verified Allergy, Unknown, 03/23/17) iodine (Verified Allergy, Unknown, 03/23/17) neomycin sulfate (Verified Allergy, Unknown, 03/23/17) polymyxin B (Verified Allergy, Unknown, 03/23/17) polymyxin B sulfate (Verified Allergy, Unknown, 03/23/17) Patient Home Medication List Home Medication List Reviewed: Yes Chlorthalidone/Atenolol (Atenolol-Chlorthal 50-25 Tb) 1 Each Tablet, 1 EACH PO DAILY, (Reported) Entered as Reported by: NINO PERRY on 09/19/12 1119 Hydrocodone/Acetaminophen (Hydrocodone/Acetaminophen 5 MG/325 MG TAB) 1 Each Tablet, 1 EACH PO UD Prescribed by: MALCOM SANCHEZ on 03/28/17 0856 Hydrocodone/Acetaminophen (Vicodin 5-300 mg Tablet) 1 Each Tablet, 1-2 EACH PO Q6H PRN for PAIN-MODERATE Prescribed by: ADAMA SHERIDAN MD on 10/12/19 1022 Tramadol HCl (Ultram) 50 Mg Tablet, 50 MG PO UD Prescribed by: MALCOM SANCHEZ on 03/28/17 0856 Review of Systems Review of Systems Constitutional: see HPI EENTM: No Symptoms Reported Respiratory: No Symptoms Reported Cardiovascular: See HPI, Chest Pain Gastrointestinal: See HPI Genitourinary: No Symptoms Reported Skin: no symptoms reported Psychiatric/Neurological: No Symptoms Reported Endocrine: No Symptoms Reported Hematologic/Lymphatic: No Symptoms Reported Past Zunnoss-Lyoqto-Aeyyah Hx Patient Social History Tobacco Use?: No Substance use?: No Alcohol Use?: No Pt feels they are or have been: No Immunizations Up To Date Tetanus Booster (TDap): More than 5yrs Influenza Vaccine Up-to-Date: Yes; Up-to-Date First/Initial COVID19 Vaccinat: 2020 Second COVID19 Vaccination Sandeep: 2020 COVID19 Vaccine 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 0.0oz. [id number]; 32.00 BMI Method:Stated General Appearance: No Apparent Distress, WD/WN Neck: Full Range of Motion, Normal Inspection Respiratory: No Accessory Muscle Use, No Respiratory Distress Cardiovascular: Regular Rate, Rhythm, Normal Peripheral Pulses Gastrointestinal: Normal Bowel Sounds, Non Tender, Soft Extremity: Normal Capillary Refill, Normal Inspection Neurologic/Psychiatric: Alert, Oriented x3 Skin: Normal Color, Warm/Dry Progress/Results/Core Measures Results/Orders Lab Results Laboratory Tests Test 12/20/21 13:06 Range/Units White Blood Count 8.4 4.3-11.0 10^3/uL Red Blood Count 5.36 H 3.80-5.11 10^6/uL Hemoglobin 15.1 11.5-16.0 g/dL Hematocrit 46 35-52 % Mean Corpuscular Volume 86 80-99 fL Mean Corpuscular Hemoglobin 28 25-34 pg Mean Corpuscular Hemoglobin Concent 33 32-36 g/dL Red Cell Distribution Width 12.7 10.0-14.5 % Platelet Count 259 130-400 10^3/uL Mean Platelet Volume 9.0 9.0-12.2 fL Immature Granulocyte % (Auto) 0 % Neutrophils (%) (Auto) 56 42-75 % Lymphocytes (%) (Auto) 32 12-44 % Monocytes (%) (Auto) 11 0-12 % Eosinophils (%) (Auto) 1 0-10 % Basophils (%) (Auto) 0 0-10 % Neutrophils # (Auto) 4.7 1.8-7.8 10^3/uL Lymphocytes # (Auto) 2.7 1.0-4.0 10^3/uL Monocytes # (Auto) 0.9 0.0-1.0 10^3/uL Eosinophils # (Auto) 0.1 0.0-0.3 10^3/uL Basophils # (Auto) 0.0 0.0-0.1 10^3/uL Immature Granulocyte # (Auto) 0.0 0.0-0.1 10^3/uL Prothrombin Time 13.3 12.2-14.7 SEC INR Comment 1.0 0.8-1.4 Activated Partial Thromboplast Time 33 24-35 SEC Sodium Level 139 135-145 MMOL/L Potassium Level 3.9 3.6-5.0 MMOL/L Chloride Level 105 98-107 MMOL/L Carbon Dioxide Level 24 21-32 MMOL/L Anion Gap 10 5-14 MMOL/L Blood Urea Nitrogen 17 7-18 MG/DL Creatinine 0.93 0.60-1.30 MG/DL Estimat Glomerular Filtration Rate 63 BUN/Creatinine Ratio 18 Glucose Level 90 70-105 MG/DL Calcium Level 9.4 8.5-10.1 MG/DL Corrected Calcium 9.2 8.5-10.1 MG/DL Magnesium Level 2.1 1.6-2.4 MG/DL Total Bilirubin 0.4 0.1-1.0 MG/DL Aspartate Amino Transf (AST/SGOT) 20 5-34 U/L Alanine Aminotransferase (ALT/SGPT) 17 0-55 U/L Alkaline Phosphatase 90 40-136 U/L Myoglobin 59.5 10.0-92.0 NG/ML Troponin I < 0.028 <0.028 NG/ML Total Protein 7.5 6.4-8.2 GM/DL Albumin 4.3 3.2-4.5 GM/DL My Orders Orders - MARCELLE WANG BOTTLE WASHER Cbc With Automated Diff (12/20/21 14:10) Magnesium (12/20/21 14:10) Chest 1 View, Ap/Pa Only (12/20/21 14:10) Ekg Tracing (12/20/21 14:10) Comprehensive Metabolic Panel (12/20/21 14:10) Myoglobin Serum (12/20/21 14:10) Protime With Inr (12/20/21 14:10) Partial Thromboplastin Time (12/20/21 14:10) O2 (12/20/21 14:10) Monitor-Rhythm Ecg Trace Only (12/20/21 14:10) Lipid Panel (12/21/21 06:00) Ed Iv/Invasive Line Start (12/20/21 14:10) Aspirin Chewable Tablet (Baby Aspirin Ch (12/20/21 14:15) Troponin I Marnie (12/20/21 13:06) Troponin I Marnie (12/20/21 16:06) Medications Given in ED Current Medications Medications Dose Ordered Sig/Dasha Route Start Time Stop Time Status Last Admin Dose Admin Aspirin 324 mg ONCE ONCE PO 12/20/21 14:15 12/20/21 14:16 DC 12/20/21 14:39 324 MG Vital Signs/I&O 12/20/21 14:00 Temp 36.1 Pulse 68 Resp 13 B/P (MAP) 176/80 (112) Pulse Ox 97 O2 Delivery Room Air Blood Pressure Mean: 112 Departure Communication (Admissions) EKG shows sinus rhythm no ST segment changes no ectopy 1626-she is upset and would like to leave because it is taking too long. Discussed with her that the repeat troponin at the 2-hour adama is even early according to some experts however it is the soonest that I can justify doing a repeat troponin. I am not doing this to be inconvenient to her, I am doing this to ensure that this is not an acute coronary syndrome. Discussed with her that she is free to leave at any time if she does not want to stay, certainly were not going to keep her hostage here. She agrees to stay. She does remain asymptomatic Impression Primary Impression: Chest pain Disposition: 01 HOME, SELF-CARE Condition: Improved Departure-Patient Inst. Decision time for Depature: 16:28 Ref[facility]: [facility] [place] Primary Care Physician BENJAMIN AMOS MD FACP [facility] FELISA ALSTON MD, DAVID L JR, MD Patient Instructions: Chest Pain Add. Discharge Instructions: 1. Follow-up with the rod puller listed. Return to ER for any recurrent or worsening symptoms. All discharge instructions reviewed with patient and/or family. Voiced understanding. MARCELLE WANG APRN Dec 20, 2021 14:30
[2021-12-20 14:31] LABS: GLUCOSE 90 MG/DL (70-105); TOTAL PROTEIN 7.5 GM/DL (6.4-8.2)
[2021-12-20 14:32] LABS: CARBON DIOXIDE 24 MMOL/L (21-32)
[2021-12-20 14:33] LABS: BILIRUBIN,TOTAL 0.4 MG/DL (0.1-1.0)
[2021-12-20 14:34] LABS: ALKALINE PHOSPHATASE 90 U/L (40-136)
[2021-12-20 14:35] LABS: CREATININE SERUM 0.93 MG/DL (0.60-1.30); GFR ESTIMATED 63
[2021-12-20 14:36] LABS: BUN/CREATININE RATIO 18
[2021-12-20 14:37] LABS: ALANINE AMINOTRANSFERASE 17 U/L (0-55); MAGNESIUM 2.1 MG/DL (1.6-2.4); PROTHROMBIN TIME PATIENT 13.3 SEC (12.2-14.7)
[2021-12-20 17:25] VITALS: BP 155/70
== END 2021-12-20 17:30 | disposition home or self-care (01) ==
LOC: EDUNIT# 14:02 → ER 14:03
DX: R07.9 Chest pain, unspecified (principal)
CPT/HCPCS: 36415; 71045; 80053; 83735; 83874; 84484; 85025; 85610; 85730; 93005; 93041

== ENCOUNTER → 2022-01-11 | Outpatient (CLI) | payer MEDICARE ==
--- NOTE | 2022-01-11 17:03 | Diagnostic Imaging Report ---
INDICATION: Left hip pinning in 2012. Screening COMPARISON: None FINDINGS: AP Spine L1-L4: [BMD (g/cm2): 1.205] [T-Score: 0.0] [Z-Score: 1.5] [BMD Previous: na] [BMD % Change: na] LT Hip Neck: [BMD (g/cm2): na] [T-Score: na] [Z-Score: na] LT Hip Total: [BMD (g/cm2):na] [T-Score:na] [Z-Score: na] [BMD Previous: na] [BMD % Change: na] RT Hip Neck: [BMD (g/cm2):0.731] [T-Score:-2.2] [Z-Score:-0.4] RT Hip Total: [BMD (g/cm2):0.874] [T-score:-1.1] [Z-Score:0.6] [BMD Previous:na] [BMD % Change:na] *Indicates significant change from prior examination based on 95% confidence level. World Health Organization criteria for BMD interpretation classify patients as Normal (T-score at or above -1.0), Osteopenic (T-score between -1.0 and -2.5) or Osteoporotic (T-score at or below -2.5). LIMITATIONS AND MODIFICATION: None. FRACTURE RISK (FRAX SCORE): The ten year probability of (%): Major Osteoporotic Fracture: [23.2] Hip Fracture: [6.6] IMPRESSION: 1. Osteopenia (Low bone mass). 2. See below National Osteoporosis Foundation guidelines on when to potentially initiate pharmacologic therapy. Based on the National Osteoporosis Foundation Guidelines, pharmacologic treatment should be initiated in any of the following, unless clinical conditions suggest otherwise: * Any patient with prior fragility fracture of the hip or vertebrae. A spine fracture indicates 5X risk for subsequent spine fracture and 2X risk for subsequent hip fracture. * Osteoporosis (T-score <-2.5). * Postmenopausal women and men age 50 and older with low bone mass/osteopenia (T-score between -1.0 and -2.5) by DXA and 10-year major osteoporotic fracture greater than 20% or a 10-year probability of hip fracture greater than 3%. These fracture risks are supplied above in the FRAX score, if applicable. * Clinician judgement and/or patient preferences may indicate treatment for people with 10-year fracture probabilities above or below these levels. Dictated by: Dictated on workstation # [id number]
== END ==
LOC: RAD 13:00
PROVIDERS: ATTEND Nurse Practitioner Family
DX: E55.9 Vitamin D deficiency, unspecified (principal); M85.80 Other specified disorders of bone density and structure, unspecified site; Z78.0 Asymptomatic menopausal state
CPT/HCPCS: 77080

== ENCOUNTER 2022-08-26 10:16 | Emergency (ER) | payer MEDICARE ==
[~2022-08-26] VITALS: Ht 160 cm; Wt 77.1 kg
--- NOTE | 2022-08-26 10:55 | ED Upper Extremity ---
General Chief Complaint: Trauma-Non Activation Stated Complaint: LT WRIST INJ Nursing Triage Note: PT AMBULATE TO ROOM FT1 WITH C/O LEFT WRIST PAIN. PT STATES SHE WAS WALKING DOWN HER STAIRS AND FORGOT SOMETHING AND FELL WHEN SHE TURNED TO GO BACK UPSTAIRS. PT STATES SHE LANDED ON LEFT WRIST AND HIT HEAD ON FLOOR. ABRASION NOTED TO ABOVE LEFT EYEBROW. PT JOSEPH LOC. PT DENIES HEAD/NECK/BACK PAIN. PT STATES SHE DID NOT TAKE ANYTHING FOR PAIN. Source: patient Exam Limitations: no limitations (BRITNEY NDIAYE) History of Present Illness Date Seen by Provider: Aug 26, 2022 Time Seen by Provider: 10:44 Initial Comments Patient is a 77 year old F with past medical history of HTN who presents to ER with CC of left wrist pain onset this morning around 7:15 AM. Patient reports that she was leaving for work and going down her front steps when she tripped and fell onto her front porch. She states that she works in [employer] and he recommended that she come in to the ER for X ray of the left wrist. Patient also reports that she hit her left head just above the eyebrow. States that her pain is currently at a 5 out of 10 and gets worse with any movement. Denies any blood thinners. Denies any LOC. Does not want tetanus update. Onset: this morning Pain/Injury Location: left wrist Method of Injury: fell Modifying Factors: Improves With Movement (BRITNEY NDIAYE) Allergies and Home Medications Allergies Coded Allergies: Bacitracin Zinc (Verified Allergy, Unknown, 03/23/17) alcohol (Verified Allergy, Unknown, 03/23/17) bacitracin (Verified Allergy, Unknown, 03/23/17) gramicidin D (Verified Allergy, Unknown, 03/23/17) iodine (Verified Allergy, Unknown, 03/23/17) neomycin sulfate (Verified Allergy, Unknown, 03/23/17) polymyxin B (Verified Allergy, Unknown, 03/23/17) polymyxin B sulfate (Verified Allergy, Unknown, 03/23/17) Patient Home Medication List Home Medication List Reviewed: Yes (BRITNEY NDIAYE) Home Medication List Reviewed: Yes (SENAIT LOPEZ MD) Chlorthalidone/Atenolol (Atenolol-Chlorthal 50-25 Tb) 1 Each Tablet, 1 EACH PO DAILY, (Reported) Entered as Reported by: NINO Blanco VICKY on 09/19/12 1119 Hydrocodone/Acetaminophen (Hydrocodone/Acetaminophen 5 MG/325 MG TAB) 1 Each Tablet, 1 EACH PO UD Prescribed by: MALCOM SANCHEZ on 03/28/17 0856 Hydrocodone/Acetaminophen (Vicodin 5-300 mg Tablet) 1 Each Tablet, 1-2 EACH PO Q6H PRN for PAIN-MODERATE Prescribed by: YOUSUF SHERIDAN MD on 10/12/19 1022 Tramadol HCl (Ultram) 50 Mg Tablet, 50 MG PO UD Prescribed by: MALCOM SANCHEZ on 03/28/17 0856 Review of Systems Musculoskeletal: joint pain (left wrist pain), joint swelling (left wrist) (BRITNEY NDIAYE) Constitutional: see HPI Respiratory: no symptoms reported Cardiovascular: no symptoms reported Gastrointestinal: no symptoms reported Genitourinary: no symptoms reported Musculoskeletal: joint pain (left wrist pain), joint swelling (left wrist) Skin: no symptoms reported (SENAIT LOPEZ MD) All Other Systems Reviewed Negative Unless Noted: Yes (SENAIT LOPEZ MD) Past Bltcnvs-Ghqyga-Shcmxb Hx Patient Social History Tobacco Use?: No Smoking Status: Never a Smoker Smokeless Tobacco Frequency: Never a User Use of E-Cig and/or Vaping dev: No Use of E-Cig and/or Vaping Erickson: Never a User Substance use?: No Alcohol Use?: No Pt feels they are or have been: No (BRITNEY NDIAYE) Immunizations Up To Date Tetanus Booster (TDap): More than 5yrs First/Initial COVID19 Vaccinat: 2020 Second COVID19 Vaccination Sandeep: 2020 (BRITNEY NDIAYE) Seasonal Allergies Seasonal Allergies: Yes (BRITNEY NDIAYE) Past Medical History Surgery/Hospitalization HX: L HIP, L ANKLE, L KNEE SCOPE, GALL BLADDER, R THUMB Surgeries: Yes (ORIF LEFT HIP, KNEE, ANKLE, CATARACTS, THUMB, R LUMPECTOMY) Gallbladder, Hysterectomy Respiratory: No Cardiac: Yes Hypertension Neurological: No Reproductive Disorders: No 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 Sexually Transmitted Disease: No HIV/AIDS: No Gastrointestinal: Yes Gastroesophageal Reflux, Polyps Musculoskeletal: Yes Arthritis, Fractures Endocrine: No Loss of Vision: Bilateral Hearing Impairment: Denies Cancer: No Psychosocial: Yes (LOST THIS ) Depression Integumentary: No Blood Disorders: No Adverse Reaction/Blood Tranf: No (N/A) (BRITNEY NDIAYE) Physical Exam Vital Signs Vital Signs - First Documented 08/26/22 10:23 Temp 36.6 Pulse 74 Resp 16 B/P (MAP) 178/97 (124) Pulse Ox 99 O2 Delivery Room Air (SENAIT LOPEZ MD) Vital Signs Capillary Refill : Less Than 3 Seconds (BRITNEY NDIAYE) Height, Weight, BMI Height: 5'4.00" Weight: 172lbs. 0.0oz. 78.118141tn; 30.00 BMI Method:Stated General Appearance: WD/WN, no apparent distress Neck: non-tender, supple, normal inspection Back: normal inspection, no CVA tenderness, no vertebral tenderness Shoulder: non-tender, normal ROM Elbow/Forearm: non-tender, normal ROM Wrist: Yes limited ROM (left wrist flexion and extension decreased due to pain), Yes pain (left wrist pain with movement ), Yes swelling (left lateral wrist) Neurologic/Psychiatric: no motor/sensory deficits, alert, normal mood/affect, oriented x 3 Skin: normal color, warm/dry (BRITNEY NDIAYE) Progress/Results/Core Measures Results/Orders My Orders Orders - SENAIT LOPEZ MD Wrist, Left, 3 Views Or More (08/26/22 10:44) (SENAIT LOPEZ MD) Vital Signs/I&O (SENAIT LOPEZ MD) Blood Pressure Mean: 124 Progress Progress Note : Time: 11:25 Progress Note Patient seen and examined by me 77-year-old female with mechanical trip and fall. Complains of left wrist pain. No loss of consciousness however she did hit her head. No blood thinners. Examination remarkable for very tiny abrasion to the left brow. Left wrist moderate swelling with limited range of motion. Point tenderness over the radial styloid. No wounds/abrasions/lacerations. Denies updating tetanus today. Denies pain medication in the ED. Denies ice pack at this time. X-ray shows no obvious fracture dislocation however the radiologist does question small lucency at the radial styloid. We will place a Velcro wrist splint and follow her up with orthopedics. Encouraged ice pack at home. Alternate Tylenol and ibuprofen as needed. Return precautions given. (SENAIT LOPEZ MD) Diagnostic Imaging Diagonstic Imaging: Xray Comments NAME: DANIELLA MEMBRENO MED REC#: [id number] PT STATUS: REG ER : 1945 PHYSICIAN: SENAIT LOPEZ MD ADMIT DATE: 08/26/22/ER Draft Date of Exam:08/26/22 WRIST, LEFT, 3 VIEWS OR MORE INDICATION: Fall, left wrist pain. EXAMINATION: Left wrist, 08/26/2022. FINDINGS: Three views of the wrist. There is narrowing and spurring at the first carpometacarpal joint. Radiocarpal joint space narrowing is also noted. There is mild osteopenia. On the oblique view only, there is a vague lucency within the radial styloid process, possibly a nutrient foramen with a fracture not excluded. No other fracture is identified. No dislocations. IMPRESSION: 1. Lucency along the radial styloid process on one view only. Fracture not excluded. Correlate for point tenderness. Dictated on workstation # [id number] Dict: 08/26/22 1111 Trans: 08/26/22 1114 [id number] Interpreted by: DARIUS SWAN MD Electronically signed by: (SENAIT LOPEZ MD) Departure Impression Primary Impression: Radial styloid fracture Qualified Codes: S52.515A - Nondisplaced fracture of left radial styloid process, initial encounter for closed fracture Additional Impression: Contusion Qualified Codes: S00.12XA - Contusion of left eyelid and periocular area, initial encounter Disposition: 01 HOME, SELF-CARE Condition: Stable Departure-Patient Inst. Decision time for Depature: 11:27 (SENAIT LOPEZ MD) Referrals: [facility] (PCP/Family) Primary Care Physician KIARA SLOAN MD, MICHAEL P MD Add. Discharge Instructions: Please apply an ice pack off-and-on 20 minutes at a time throughout the day today for swelling. Keep the left wrist elevated to reduce swelling. You can alternate [id number] ibuprofen and extra strength Tylenol every 6 hours at home as needed for pain. Always take ibuprofen with food. Wear the splint until you follow-up with orthopedics. You can follow-up with the orthopedic doctor of your choice. I have also put [facility] orthopedic surgeons information on your discharge paperwork. Return to the emergency department for any new, concerning or emergent complaints. Work/School Note: Work Release Form Date Seen in the Emergency Department: Aug 26, 2022 Return to Work: Aug 29, 2022 Verification and Attestation of Medical Student E/M Service A medical student performed and documented this service in my presence. I reviewed and verified all information documented by the medical student and made modifications to such information, when appropriate. I personally performed the physical exam and medical decision making. Senait Lopez, Aug 26, 2022,11:29 (SENAIT LOPEZ MD) Copy Copies To 1: KELLY GONZALEZ DO Copies To 2: KIARA SLOAN MD; GATO BARRON MD, NATASHA Aug 26, 2022 10:55 SENAIT LOPEZ MD Aug 26, 2022 11:29
--- NOTE | 2022-08-26 11:15 | Diagnostic Imaging Report ---
INDICATION: Fall, left wrist pain. EXAMINATION: Left wrist, 08/26/2022. FINDINGS: Three views of the wrist. There is narrowing and spurring at the first carpometacarpal joint. Radiocarpal joint space narrowing is also noted. There is mild osteopenia. On the oblique view only, there is a vague lucency within the radial styloid process, possibly a nutrient foramen with a fracture not excluded. No other fracture is identified. No dislocations. IMPRESSION: 1. Lucency along the radial styloid process on one view only. Fracture not excluded. Correlate for point tenderness. Dictated by: Dictated on workstation # [id number]
[2022-08-26 11:40] VITALS: BP 168/89
== END 2022-08-26 11:40 | disposition home or self-care (01) ==
LOC: EDUNIT# 10:16 → ER 10:19
DX: S52.512A Displaced fracture of left radial styloid process, initial encounter for closed fracture (principal); S00.212A Abrasion of left eyelid and periocular area, initial encounter; W01.10XA Fall on same level from slipping, tripping and stumbling with subsequent striking against unspecified object, initial encounter; Y92.89 Other specified places as the place of occurrence of the external cause; Y93.01 Activity, walking, marching and hiking
CPT/HCPCS: 73110

== ENCOUNTER → 2022-12-29 | Outpatient (CLI) | payer MEDICARE | LOC: CARD 07:23 | PROVIDERS: ATTEND Family Medicine | DX: R00.2 Palpitations (principal) | CPT/HCPCS: 93246 ==

== ENCOUNTER → 2023-02-23 | Outpatient (CLI) | payer MEDICARE | LOC: CARD 07:37 | PROVIDERS: ATTEND Internal Medicine Cardiovascular Disease | DX: I51.7 Cardiomegaly (principal); I34.0 Nonrheumatic mitral (valve) insufficiency | CPT/HCPCS: 93306 ==

== ENCOUNTER → 2023-03-22 | Outpatient (CLI) | payer MEDICARE ==
[~2023-03-22] MED LIST changes: +CATHETER FLUSH 10 ML SYR IVP PRN; +REGADENOSON 0.4 MG/5 ML SYR (LEXISCAN) IV ONE
[2023-03-22 08:51] VITALS: BP 148/79
[2023-03-22 09:03] VITALS: BP 158/75
--- NOTE | 2023-03-22 12:55 | Cardiology Stress Test Report ---
Stress Test Report Date of Procedure/Referring: Date of Procedure: Mar 22, 2023 PCP Manisha Ruiz MD Admitting Physician Admitting Physician: Attending Physician: Sonny Gabriel MD Baseline Heart Rate: 67 Baseline Blood Pressure: Blood Pressure Systolic: 158 Blood Pressure Diastolic: 75 Baseline Vitals Vital Signs Date Time Temp Pulse Resp B/P (MAP) Pulse Ox O2 Delivery O2 Flow Rate FiO2 03/22/23 08:51 65 148/79 (102) Room Air Baseline EKG: Baseline EKG: NSR Summary After explaining the procedure to the patient, she signed a consent and then brought to the stress nuclear laboratory. Patient received 0.4 mg Lexiscan for stress test, ECG, heart rate and blood pressure were monitored continuously. Resting and stress dose of radio tracer were injected, imaging was acquired and reviewed in short axis, horizontal long axis and vertical long axis views. TID: 0.97 SSS: 5 SDS: 5 EF: 61 Patient tolerated Lexiscan well Breast attenuation with mild decrease uptake at the mid to apical anterior lateral wall with mild reversibility, most probably secondary to breast attenuation, overall there is no significant ischemia or infarction on SPECT images Normal left ventricular size, ejection fraction 61% Copy Copies To 1: MANISHA RUIZ MD, BASHAR J MD Mar 22, 2023 12:55
== END ==
LOC: CARD 07:10
PROVIDERS: ATTEND Internal Medicine Cardiovascular Disease
DX: I48.20 Chronic atrial fibrillation, unspecified (principal)
CPT/HCPCS: 78452; 93017; A9502

== ENCOUNTER 2023-06-14 07:09 | Day surgery (SDC) | payer MEDICARE ==
[2023-06-14] VITALS (11 sets, daily range): BP systolic 160–174; BP diastolic 70–83
[~2023-06-14] VITALS: Ht 162.6 cm; Wt 67.5 kg
[~2023-06-14 07:09] MED LIST changes: -CATHETER FLUSH 10 ML SYR IVP PRN; -REGADENOSON 0.4 MG/5 ML SYR (LEXISCAN) IV ONE
[2023-06-14] MEDS ORDERED: NS IV 1000 ML 1,000 ML ONE (07:15)
[2023-06-14] MEDS ORDERED: LIDOCAINE 1% INJ 20 ML VIAL ONE (07:15)
[2023-06-14] MEDS ORDERED: HEParin (CATH LAB) 2,000 ML IV ONE (07:15)
[2023-06-14] MEDS ORDERED: NS IV 1000 ML 1,000 ML IV SCH ×2 (07:30→11:00)
[2023-06-14] MEDS ORDERED: METO-352 PO (07:54)
[2023-06-14] MEDS ORDERED: ASPI-999 PO (07:54)
[2023-06-14 07:55] LABS: HEMATOCRIT 42 % (35-52); HEMOGLOBIN 14.3 g/dL (11.5-16.0); MEAN CORPUSCULAR HEMOGLOBIN 29 pg (25-34); MEAN CORPUSCULAR HGB CONC 34 g/dL (32-36); MEAN CORPUSCULAR VOLUME 86 fL (80-99); MEAN PLATELET VOLUME 11.4 fL (9.0-12.2); PLATELET COUNT 170 10^3/uL (130-400); WHITE BLOOD COUNT 5.8 10^3/uL (4.3-11.0)
[2023-06-14 08:13] LABS: INR 1.1 (0.8-1.4); PROTHROMBIN TIME PATIENT 13.9 SEC (12.2-14.7)
--- NOTE | 2023-06-14 08:22 | Diagnostic Imaging Report ---
INDICATION: Coronary artery disease, shortness of breath, pre-heart catheterization. Portable chest 7:24 AM Heart size and pulmonary vascularity are normal. Lungs are clear. There are no effusions or pneumothoraces. IMPRESSION: No acute abnormalities in the chest Dictated by: Dictated on workstation # [id number]
[2023-06-14 08:47] LABS: ALBUMIN 3.8 GM/DL (3.2-4.5); BILIRUBIN,TOTAL 1.1 MG/DL (0.1-1.0); CALCIUM 8.7 MG/DL (8.5-10.1); CREATININE SERUM 0.87 MG/DL (0.60-1.30); TOTAL PROTEIN 6.2 GM/DL (6.4-8.2)
[2023-06-14] MEDS ORDERED: fentaNYL INJECTION 100 MCG/2 ML VIAL ONE (09:33)
[2023-06-14] MEDS ORDERED: VERAPAMIL 5 MG/2 ML (CALAN) VIAL IV ONE (09:33)
[2023-06-14] MEDS ORDERED: MIDAZOLAM INJ 5 MG/5 ML VIAL ONE (09:34)
[2023-06-14] MEDS ORDERED: NITRO DRIP 25000 MCG/D5W 0 ML IV ONE (09:34)
[2023-06-14] MEDS ORDERED: HEParin 1000 UNIT/ML (10ML VIAL) FOR BOLUS ONE (09:34)
[2023-06-14] MEDS ORDERED: diphenhydrAMINE INJ 50 MG/ML VIAL ONE (10:09)
[2023-06-14] MEDS ORDERED: methylPREDNISolone INJ 125 MG VIAL ONE (10:09)
[2023-06-14] MEDS ORDERED: NALOXONE 0.4 MG/ML 1 ML VIAL ONE (10:39)
--- NOTE | 2023-06-14 10:58 | Cardiac Procedure Note-CS/ASA ---
Pre-Procedure Note Pre-Op Procedure Note Date of Available H&P: May 30, 2023 Date H&P Reviewed: Jun 14, 2023 Time H&P Reviewed: 09:00 History & Physical: H&P Reviewed, Patient Examed, No changes noted Pre-Operative Diagnosis: CAD Moderate Sedation PreProcedure Time 09:00 ASA Score 3 Airway Lungs Heart ASA score ASA 1: a normal healthy patient ASA 2: a patient with a mild systemic disease (mid diabetes, controlled hypertension, obesity ASA 3: a patient with a severe systemic disease that limits activity (angina, COPD, prior Myocardial infarction) ASA 4: a patient with an incapacitating disease that is a constant threat to life (CHF, renal failure) ASA 5: a moribund patient not expected to survive 24 hrs. (ruptured aneurysm) ASA 6: a declared brain- patient whose organs are being harvested. For emergent operations, add the letter E after the classification Mallampati Classification Grade 3 Sedation Plan Analgesia, Amnesia, Plan communicated to team members, Discussed options with patient/fam, Discussed risks with patient/fam The patient is an appropriate candidate to undergo the planned procedure, sedation, and anesthesia. The patient immediately re-assessed prior to indication. FELISA ALSTON MD Jun 14, 2023 10:58
[2023-06-14] MEDS ORDERED: PATIENT MAY USE OWN MEDS, ALL PO SCH (11:00)
--- NOTE | 2023-06-14 11:00 | Discharge Inst-Post CATH ---
Discharge Inst-CATH/EP Problems Reviewed?: Yes Post Cardiac Cath/EP D/C Inst Follow Up/Plan Appointment with Dr. Gabriel's office in 4 weeks <b>CARDIAC CATH/EP PROCEDURE DISCHARGE INSTRUCTIONS</b> ACTIVITY * Go Home directly and rest. * Limit activity of the leg (or wrist if it was used) for 7 days including aerobics, swimming, jogging, bicycling, etc. * Restrict stair-climbing for 7 days if possible, if not, climb up with your non-cath leg, then bring together on the same step. * Avoid lifting, pushing, pulling or excessive movement of the affected extremity for 7 days. * Customary sexual activity may be resumed after 2 days-use caution not to use a position that strains or causes pain to the affected extremity. * No driving for 24 hours. * NO SMOKING. * Avoid straining for bowel movements for 7 days. * Gentle walking on level ground is allowed. * Returning to work will depend on the type of procedure and the results. Your doctor will discuss this with you. CALL YOUR DOCTOR FOR ANY OF THE FOLLOWING: *If bleeding from the puncture site occurs- Apply gentle pressure to site with clean cloth and call your doctor or EMS. * If a knot or lump forms under the skin, increases in size, or causes pain. * If bruising appears to be worsening or moving further down your leg instead of disappearing. * Temperature above 101 F. CARE OF YOUR GROIN INCISION; * Bruising or purple discoloration of the skin near the puncture site is common. * You may shower only, no bathtub bathing for 5 days. Be careful to avoid slipping as your leg may feel stiff. * If a closure device was used on your femoral artery, please see the attached guide regarding care of the device and your leg. * Leave dressing on FOR 24 hours. CARE OF YOUR WRIST INCISION; * Bruising or purple discoloration of the skin near the puncture site is common. * You may shower. * DO NOT submerge wrist. * Leave dressing on FOR 24 hours. FELISA GABRIEL MD Jun 14, 2023 11:00
--- NOTE | 2023-06-14 11:03 | Cardiac Cath Report ---
Cardiac Cath Report Physician (s)/In Classroom Tutor (s) Physician FELISA ALSTON MD Pre-Procedure Diagnosis Pre-Procedure Diagnosis: CAD Post-Procedure Note Procedure Start Date: Jun 14, 2023 Name of Procedure: Left heart catheterization Findings/Procedure Note PROCEDURE NOTE: 78 years old lady with history of hypertension, had an abnormal stress test with anterior wall ischemia scheduled for cardiac catheterization possible PTCA. After explaining the procedure to the patient, all pros and cons were explained, all questions were answered. The patient signed the consent and then she was placed in the cardiac catheterization laboratory. Groin was prepped in SL fashion local anesthesia was used. I was able to access the right radial artery, patient continued to move her arm, I lost access twice, I was unable to advance the wire subsequently I decided to abort the attempt for radial access. I proceeded with groin access, sheath placed in the femoral artery. Maddie' right and left catheter were used to access the coronary system. Maddie right was prolapsed to the left ventricular cavity, pressure was measured, pullback LV to aorta was done. At the end of the procedure the sheath was removed. Closure device was deployed FINDINGS: Hemodynamics LV 183/18, end-diastolic pressure of 18 Aorta 178/73 mean of 85 ANATOMY: Left Main is free of obstructive disease Left Anterior Descending is moderate in size with mild disease nonobstructive disease Left Circumflex is nondominant artery with no obstructive disease Right Coronary Artery is dominant artery with no obstructive disease LV Gram was not done, pressure was measured CONCLUSION: Mild coronary artery disease nonobstructive disease Mildly elevated left ventricular end-diastolic pressure with hypertensive heart disease DISCUSSION AND RECOMMENDATION: Continue to maximize medical therapy. No intervention is warranted Abnormal stress test is probably due to small vessel disease and extracardiac attenuation Anesthesia Type: Conscious Sedation Estimated blood loss (mL): 15 ml Contrast Amount: 20 ml Total Radiation Dose: 67 mGy Post-Procedure Diagnosis Post-operative diagnosis: Coronary artery disease Hypertension Chest pain FELISA ALSTON MD Jun 14, 2023 11:03
== END 2023-06-14 15:26 | disposition home or self-care (01) ==
LOC: CATH 07:09 → SDC 11:32 → CATH 15:26
PROVIDERS: ATTEND Internal Medicine Cardiovascular Disease
DX: I25.10 Atherosclerotic heart disease of native coronary artery without angina pectoris (principal); I10 Essential (primary) hypertension; I47.1 Supraventricular tachycardia; I47.20 Ventricular tachycardia, unspecified; Z79.899 Other long term (current) drug therapy
CPT/HCPCS: 36140; 71045; 80053; 80061; 85027; 85610; 85730; 87081; 93005; 93458; C1760; C1894; 36415